=== PATIENT | female | born 1940 | race Caucasian/White ===

== ENCOUNTER 2017-12-17 05:51 | Observation (INO) | payer OTHER ==
[2017-12-17] MEDS ORDERED: ACETAMINOPHEN 500 MG TAB PO ONE (06:04)
[2017-12-17] MEDS ORDERED: ceFAZolin 2 GM/DEXTROSE 100 ML IV ONE (06:04)
[2017-12-17] MEDS ORDERED: LIDOCAINE 1% 2 ML INJ ID PRN (06:08)
[2017-12-17] MEDS ORDERED: LR 1,000 ML IV ONE (06:08)
--- NOTE | 2017-12-17 06:15 | POSTANESTH ---
Post Anesthetic Evaluation Cardiovascular Status: Normal, Stable Respiratory Status: Normal, Stable Level of Consciousness/Mental Status: Can Participate in Eval, Moderately Sleepy Pain Control: Adequate, Prn Tx Ordered Nausea/Vomiting Control: Adequate, Prn Tx Ordered Complications Possibly Related to Anesthesia: None Noted
--- NOTE | 2017-12-17 06:16 | PDANEPAE ---
ANE History of Present Illness 77 yo female for shoulder surgery. ANE Past Medical History - Cardiovascular History Hx Hypertension: Yes Hx Arrhythmias: No Hx Chest Pain: No Hx Coronary Artery / Peripheral Vascular Disease: No Hx CHF / Valvular Disease: No Hx Palpitations: No - Pulmonary History Hx COPD: No Hx Asthma/Reactive Airway Disease: No Hx Recent Upper Respiratory Infection: No Hx Oxygen in Use at Home: No Hx Sleep Apnea: No Sleep Apnea Screening Result - Last Documented: Negative - Neurologic History Hx Cerebrovascular Accident: No Hx Seizures: No Hx Dementia: No - Endocrine History Hx Diabetes: No Hypothyroid: No Hyperthyroid: No Obesity: no - Renal History Hx Renal Disorders: No - Liver History Hx Hepatic Disorders: No - Neurological & Psychiatric Hx Hx Neurological and Psychiatric Disorders: No - Cancer History Hx Cancer: No - Congenital Disorder History Hx Congenital Disorders: No - GI History GERD: mild Hx Gastrointestinal Disorders: Yes - Other Health History Other Health History: wears glasses. bilat hearing aides. Pt states arthritis in back and gets injections from pain clinic @ [facility]. Last injection . - Chronic Pain History Chronic Pain: Yes (back) - Surgical History Prior Surgeries: Bilat knee replacements, 2009. Left shoulder scope, 2016. colonoscopies. hysterectomy & oopherectomy, 39 years ago. cholecystectomy. bilt cataract removal ANE Review of Systems Review of systems is: negative Review of Systems: - Exercise capacity METS (RN): 4 METS - Systems Constitutional: Reports: no symptoms Muscolosketal: Reports: back pain, joint pain ANE Patient History - Allergies Allergies/Adverse Reactions: codeine Allergy (Verified 11/28/17 12:31) hallucinations iodine Allergy (Verified 11/28/17 12:31) Hives - Home Medications Home Medications: Losartan/Hydrochlorothiazide 11/28/17 [Last Taken 12/16/17] Omeprazole 11/28/17 [Last Taken 12/16/17] - NPO status NPO Status: no food or drink >8 hours - Anes Hx Anes Hx: post operative nausea - Smoking Hx Smoking Status: Never smoked Marijuana use: No - Family Anes Hx Family Anes Hx: neg - N/A Family Hx Anesthesia Complications: none ANE Labs/Vital Signs - Vital Signs Vital Signs: reviewed preoperatively; see RN documention for details Blood Pressure: 179/99 Heart Rate: 82 Respiratory Rate: 11 O2 Sat (%): 93 Height: 162.56 cm Weight: 77.111 kg ANE Physical Exam - Airway Neck exam: decreased ROM Mallampati Score: Class 2 Mouth exam: normal dental/mouth exam - Pulmonary Pulmonary: clear to auscultation - Cardiovascular Cardiovascular: regular rate and rhythym - ASA Status ASA Status: II ANE Anesthesia Plan Anesthesia Plan: GA w LMA Regional Anesthesia: interscalene BP NB, POPC/PSR
--- NOTE | 2017-12-17 06:55 | GHP ---
CURRENT COMPLAINT: Right shoulder pain and weakness. HISTORY OF PRESENT ILLNESS: The patient is a 77-year-old female, with a several-month history of rig ht shoulder pain and weakness, worsened with use and with time. MRI exams revealed subacromial impin gement anatomy as well as biceps tendinopathy, partial thickness rotator cuff tear, AC osteoarthritis , and tearing of the labrum. She wished to have surgery in order to resolve the problem. ALLERGIES: Include codeine and iodine. CURRENT MEDICATIONS: Include latanoprost, losartan with hydrochlorothiazide, meloxicam, omeprazole, Restasis, tizanidine. Prior medical problems include arthritis. PRIOR SURGERIES: Include knee arthroscopy x3, orthopedic surgery x1, and other x2. SOCIAL HISTORY: She has never been a smoker. She is a social drinker. PHYSICAL EXAMINATION: The patient has decreased active range of motion with better passive range of motion. She has decreased strength to external rotation with 5/5 strength to internal rotation, justin ps, and triceps. She has significant weakness to supraspinatus and Speed test. She has impingement pain to a test. She is tender at the bicipital groove, the anterior joint line. MRI has revealed a high-grade partial thickness rotator cuff tear, biceps tendinopathy, anterior acro mial curve and hook, AC osteoarthritis, and tearing of the labrum. ASSESSMENT AND PLAN: Patient is status post right shoulder impingement syndrome with rotator cuff te ar, acromioclavicular osteoarthritis, and labral tear with biceps tendinopathy. PLAN: To take her to the operating room to undergo a right shoulder scope with subacromial decompres osbaldo and possible rotator cuff repair and biceps tenodesis as well as AC resection. /[id number]/MODL
[2017-12-17] MEDS ORDERED: BUPIVACAINE/EPI 0.5% 30 ML SDV ONE (06:58)
[2017-12-17] MEDS ORDERED: EPINEPHrine 30 MG/30 ML MDV (0.1 MG/0.1 ML) ONE (06:58)
[2017-12-17] MEDS ORDERED: fentaNYL 100 MCG/2 ML INJ ONE (07:10)
[2017-12-17] MEDS ORDERED: PROPOFOL/EMULSION 500 MG/50 ML BOTTLE IV ONE (07:10)
[2017-12-17] MEDS ORDERED: DEXAMETHASONE 4 MG/ML VIAL ONE (07:10)
[2017-12-17] MEDS ORDERED: LIDOCAINE 2% 2 ML INJ ONE (07:10)
[2017-12-17] MEDS ORDERED: ROPIVACAINE HCL 150 MG/30 ML INJ ONE (07:11)
--- NOTE | 2017-12-17 07:14 | PDHPUP ---
History & Physical Update H&P update statement: This history and physical update is based on an assessment of the patient which was completed after admission or registration (within 24 hours), but prior to the surgery/procedure. H&P update: H&P reviewed & patient examined, no change in patient's condition since H&P completed
[2017-12-17] MEDS ORDERED: ROCURONIUM 50 MG/5 ML VIAL ONE (07:19)
[2017-12-17] MEDS ORDERED: THROMBIN (BOVINE) 5,000 UNIT VIAL TP ONE (07:25)
[2017-12-17] MEDS ORDERED: CALCIUM CHLORIDE 1 GM/10 ML INJ ONE (07:25)
[2017-12-17] MEDS ORDERED: PHENYLEPHRINE HCL 100 MCG/ML SYR ONE (08:10)
[2017-12-17] MEDS ORDERED: PROPOFOL 200 MG/20 ML VIAL ONE ×2 (08:50)
[2017-12-17] MEDS ORDERED: ONDANSETRON 4 MG/2 ML VIAL ONE ×2 (09:25→10:07)
[2017-12-17] MEDS ORDERED: NEOSTIGMINE METHYLSULFATE 5 MG/5 ML SYR ONE (09:40)
[2017-12-17] MEDS ORDERED: ONDANSETRON 4 MG/2 ML VIAL IVP PRN (09:50)
[2017-12-17] MEDS ORDERED: KETOROLAC 15 MG/1 ML SDV IVP ONE (09:50)
[2017-12-17] MEDS ORDERED: HYDROCODONE/APAP 5/325 TAB PO PRN (09:50)
[2017-12-17] MEDS ORDERED: ACETAMINOPHEN 325 MG TAB PO PRN (09:50)
--- NOTE | 2017-12-17 09:50 | POSTOPPROG ---
Post Op Note Date of Operation: 12/17/17 Surgeon: Mare Pa Rotary Rock Drilling Machine Operator: coltrain Anesthesia: GET(General Endotracheal), Other (Specify) Pre-op Diagnosis: r shouolder impingmeent with ac-oa and bicep tendinopathy Procedure: r shoulder scope with sad/dce/debridement and open bicep tenodesis Inf/Abcess present in the surg proc area at time of surgery?: No Depth: Deep Incisional (Fascial) EBL: 50-100
[2017-12-17] MEDS ORDERED: ALBUTEROL 3 ML DEYVIAL IH PRN (10:23)
[2017-12-17] MEDS ORDERED: LR 250 ML IV PRN (10:23)
[2017-12-17] MEDS ORDERED: oxyCODONE IR 5 MG TAB PO PRN (10:23)
[2017-12-17] MEDS ORDERED: NALOXONE HCL 0.4 MG/ML INJ IVP PRN (10:23)
[2017-12-17] MEDS ORDERED: fentaNYL 100 MCG/2 ML INJ IVP PRN (10:23)
[2017-12-17] MEDS ORDERED: ACETAMINOPHEN 500 MG TAB PO PRN (10:23)
[2017-12-17] MEDS ORDERED: PROMETHAZINE HCL 25 MG/ML INJ ONE (10:24)
[2017-12-17] MEDS ORDERED: KETOROLAC 15 MG/1 ML SDV ONE (10:24)
[2017-12-17] MEDS: PROMETHAZINE HCL 25 MG/ML INJ IVP PRN ×4 (10:29→10:56)
--- NOTE | 2017-12-17 11:16 | GOP ---
DATE OF OPERATION: 12/17/2017 SURGEON: Mare Pa MD DRY WALL FINISHER: EVELIN Still, NESTORA, whose presence was medically necessary. ANESTHESIA: Endotracheal intubation plus scalene nerve block per surgeon's request. PREOPERATIVE DIAGNOSIS: Right shoulder impingement syndrome with acromioclavicular osteoarthritis, p artial thickness rotator cuff tear, labral tear and biceps tendinopathy. POSTOPERATIVE DIAGNOSIS: Right shoulder impingement syndrome with acromioclavicular osteoarthritis, partial thickness rotator cuff tear, labral tear and biceps tendinopathy, grade 2 chondral changes to the humerus. PROCEDURE PERFORMED: Open right biceps tenodesis with right shoulder scope with debridement of bicep s stump, labrum and rotator cuff and chondroplasty of the humeral head as well as subacromial decompr ession and arthroscopic acromioclavicular resection. FINDINGS: INDICATIONS: This is a 77-year-old female with a several-month history of right shoulder pain worsen ing with use and with time. MRI exam reveals impingement anatomy as well as AC osteoarthritis, bicep s tendinopathy and labral tear. She wishes to have surgery in order to resolve the problem. DESCRIPTION OF PROCEDURE: Patient brought to the operating room after the right side had been identi fied as the correct side by the patient nurse physician. Once in the operating room she was given a scalene nerve block on the right side and then placed under general anesthesia using endotracheal int ubation. Once asleep, she was placed in the beach chair position with the right upper extremity ster ilely prepped and draped in usual fashion using GSI solution. Once prepped and draped, incision was made off the posterolateral corner of the acromion with the camera introduced without difficulty. In spection of the joint revealed extensive tearing of the labrum as well as extensive tearing of the bi ceps tendon and the rotator cuff. Therefore, it was decided to do a biceps tenodesis. Therefore, a 4 cm incision was made near the superior portion of the biceps tendon with sharp dissection carried d own through the skin and subcutaneous layers. The deltopectoral interval was identified and bluntly divided gaining access onto the biceps groove. The biceps sheath was opened. She was noted to have extensive tearing even into the biceps sheath. A #2 FiberWire was woven into the biceps tendon. It was then cut short. A guidewire was placed within the bicipital groove. The biceps tendon was measu red to be 7 mm in diameter. Therefore, an 8 mm hole was drilled unicortically and an 8 mm cayenne an chor was screwed into the bone while holding the biceps tendon in place. Once completed the wound wa s thoroughly irrigated with antibiotic solution, was closed in layers to include 2-0 Vicryl suture fo r the deltopectoral interval and subcutaneous layers, and a 3-0 Monocryl suture in a running subcutic ular stitch for the skin. Attention was then turned back to the shoulder. Camera was reintroduced i nto the glenohumeral joint. Using an end-to-out technique an anterior portal was made superolateral to the coracoid process with a 6 x 75 mm threaded cannula placed through the anterior portal and a 3. 5 mm smooth shaver was then used to debride and debulk the remainder of the bicipital stump. The tea ring of the posterior inferior superior and anterior portions of the labrum as well as chondroplasty of the humeral head and the fraying associated with the rotator cuff was also debrided. Once complet ed, all instruments were removed from the glenohumeral joint and using the same portal sites were ladi ntroduced in the subacromial space. A third incision was made 2 cm lateral to the acromial process i n line with the posterior cortex of the clavicle with the camera switched to the lateral portal, and alternatingly, using arthroscopic Bovie tip and a shaver was used to remove the abundant amount of so ft tissue within the subacromial space and the soft tissue on the undersurface of the acromion. She was noted to have a short, sharp inferior curve and an Acromionizer bur was brought through the poste rior portal and used to remove that curve removing approximately 6 mm of bone. Attention was then tu rned to the distal clavicle, which was noted to have a large inferior spur. This was also removed us ing a combination of shaver bur removing approximately 9 mm of bone. Once completed, a thorough insp ection was done of the rotator cuff which was noted to have some fraying but there was no true throug h and through tear noted. Therefore spinal needle was placed into the posterior portion of the AC ximena int in order to further identify and an incision was made directly over it and using a combination of shaver and bur, it was used to remove bone from the distal end of the clavicle removing approximatel y 5 mm of bone to the point the camera was able to be introduced into the AC joint and a probe was br ought through the lateral portal to show how much bone had actually been removed. Once completed all instruments were removed from the subacromial space with 30 cc of Marcaine infused in the subacromia l space. The 4 portal sites were closed using 3-0 nylon suture in a [id number] type stitch. Pl asma gel was injected in the subacromial space. The bicipital wound was dressed with Steri-Strips an d all wounds were dressed with Xeroform, 4 x 4, and Tegaderm. She was completely undraped in the ope rating room, had a sling placed on the right upper extremity. She was then woken up, extubated, fitch sferred onto a stretcher, and sent to recovery room in good condition. /[id number]/MODL
--- NOTE | 2017-12-18 12:09 | ASMTLACE ---
LACE Length of stay for Answers: 2 days current admission Acuity / Level of Answers: No Care: Did the patient have an inpatient admission? Comorbidities - select Answers: Opioid dependence all that apply / Chronic pain Other Notes: HTN # of Emergency department Answers: 0 visits in the last 6 months Score: 7 Date Signed: 12/18/2017 12:09 PM Electronically Signed By:MO Watson
[2017-12-18 12:46] VITALS: BP 135/73
--- NOTE | 2017-12-18 12:59 | SOAPPROG ---
SOAP Progress Note Assessment/Plan: Assessment:Annetta is POD#1 s/p right shoulder arthroscopy with biceps tenodesis, SAD, DCE. She is doing well PE: Dressing intact with sanguinous drainage NV intact RUE Well fitting sling in place Plan: Patient is doing well. Plan for discharge home today. She may use the upper extremity as tolerated. Dressing changed today and will be removed in 2 days. Incisions may get wet, but no submerging. Follow up in 10 days for post operative appointment. 12/18/17 12:57 Objective: Vital Signs Temp Pulse Resp BP Pulse Ox 36.7 C 93 16 135/73 H 96 12/18/17 12:00 12/18/17 12:00 12/18/17 12:00 12/18/17 12:00 12/18/17 12:00 12/17/17 12/18/17 12/19/17 05:59 05:59 05:59 Intake Total 1700 Output Total 350 100 Balance 1350 -100
[2017-12-18] MEDS ORDERED: traMADol 50 MG TAB PO PRN (13:22)
--- NOTE | 2017-12-18 13:28 | SOAPPROG ---
SOAP Progress Note Assessment/Plan: Assessment: 77 yo female s/p R shoulder arthroscopy admitted post-op for hypoxia and dizziness. Dizziness has resolved. Suspect it was secondary to Phenergan pt received in PACU for ALLAN. Pt still on O2. Will encourage ambulation now that dizziness has passed, and continuing to utilize the incentive spirometer every hour while awake to expand airways. Pt notes that she has been told she is a shallow breather in the past. Shoulder pain now 7/10 as ISB has worn off. Pt receiving Tramadol to help alleviate pain. Pt moves fingers and hand normally with no weakness. Full sensation in arm has returned per patient. Plan: 12/18/17 13:25 Objective: Vital Signs Temp Pulse Resp BP Pulse Ox 36.7 C 93 16 135/73 H 96 12/18/17 12:00 12/18/17 12:00 12/18/17 12:00 12/18/17 12:00 12/18/17 12:00 12/17/17 12/18/17 12/19/17 05:59 05:59 05:59 Intake Total 1700 Output Total 350 100 Balance 1350 -100 Physical Exam - Physical Exam General Appearance: alert, no apparent distress Extremities: other (R hand and fingers flex and extend with no limitations) ICD10 Worksheet Patient Problems: Problems Problem Status Onset Post-operative state Acute - ICD10 Problem Qualifiers (1) Post-operative state
--- NOTE | 2017-12-18 15:05 | ASMTCMCOM ---
CM Note CM Note Notes: Pt admitted for hypoxia/dizziness after shoulder surgery. No therapy eval ordered. Pt medically stable for d/c, no CM d/c needs identified. Date Signed: 12/18/2017 03:05 PM Electronically Signed By:MO Watson
== END 2017-12-18 16:52 | disposition home or self-care (01) ==
LOC: FSGY 05:51 → F3N 15:04
PROVIDERS: ADMIT Orthopaedic Surgery; ATTEND Orthopaedic Surgery
DX: R09.02 Hypoxemia (principal); R42 Dizziness and giddiness; M25.811 Other specified joint disorders, right shoulder; M75.111 Incomplete rotator cuff tear or rupture of right shoulder, not specified as traumatic; M75.21 Bicipital tendinitis, right shoulder; M19.011 Primary osteoarthritis, right shoulder; Z96.653 Presence of artificial knee joint, bilateral
CPT/HCPCS: 23430; 29824; 29826; 29827; 71045; C1713; G0378; J0171; J0690; J1100; J1885; J2370; J2405; J2550; J2704; J2710; J2795; J3010